=== PATIENT | male | born 1940 ===

== ENCOUNTER 2020-12-02 13:05 | Day surgery (SDC) | payer OTHER ==
[~2020-12-02 13:05] MED LIST: COZAAR25 MG PO; LIPITOR80 MG PO; PLAVIX75 MG; PROTONIX40 MG PO; TOPROL XL50 M1 PO
[2020-12-02] MEDS ORDERED: PERCOCET 5-3251 EACH PO (21:34)
== END 2020-12-02 20:00 | disposition home or self-care (01) ==
LOC: CIR.AMB 13:05
PROVIDERS: ATTEND Surgery
DX: N52.31 Erectile dysfunction following radical prostatectomy (principal); R39.81 Functional urinary incontinence; Z20.822 Contact with and (suspected) exposure to COVID-19; N48.6 Induration penis plastica
CPT/HCPCS: 54405; 53440; C1771; C1813

== ENCOUNTER 2021-10-19 05:41 | Day surgery (SDC) | payer OTHER ==
[~2021-10-19 05:41] MED LIST changes: +PERCOCET 5-3251 EACH PO
[2021-10-19] MEDS ORDERED: PYRIDIUM200 MG PO (10:23)
[2021-10-19] MEDS ORDERED: BACTRIM DS TAB1 EACH PO (10:24)
[2021-10-19] MEDS ORDERED: ULTRAM50 MG PO (10:25)
== END 2021-10-19 14:20 | disposition home or self-care (01) ==
LOC: CIR.AMB 05:41
PROVIDERS: ATTEND Surgery
DX: T83.410A Breakdown (mechanical) of implanted penile prosthesis, initial encounter (principal); N32.0 Bladder-neck obstruction; I25.10 Atherosclerotic heart disease of native coronary artery without angina pectoris; I10 Essential (primary) hypertension; I25.2 Old myocardial infarction; Z95.5 Presence of coronary angioplasty implant and graft; E78.00 Pure hypercholesterolemia, unspecified; Z86.16 Personal history of COVID-19; Z85.46 Personal history of malignant neoplasm of prostate; E66.9 Obesity, unspecified; Z20.822 Contact with and (suspected) exposure to COVID-19